=== PATIENT | female | born 1965 | race Native Hawaiian/Other Pacific Islander ===

== ENCOUNTER 2017-05-12 10:17 | Emergency (ER) | payer OTHER ==
[2017-05-12 10:27] VITALS: BP 113/76
--- NOTE | 2017-05-12 10:46 | UC ---
Throat Pain/Nasal Prince HPI - HPI Summary HPI Summary: 52 yo female with a one week hx of nasal congestion/post nasal drip Has left frontal and maxillary pain/pressure worse when bending over left upper teeth sensitive no f/c no n/v/d no photophobia - History of Current Complaint Chief Complaint: UCHeadache Stated Complaint: HEADACHE Time Seen by Provider: 05/12/17 10:37 Hx Obtained From: Patient Hx Last Menstrual Period: 05/06/17 Onset/Duration: Gradual Onset, Still Present Severity: Moderate Pain Intensity: 6 Pain Scale Used: 0-10 Numeric Associated Signs & Symptoms: Positive: Hoarseness, Sinus Discomfort, Nasal Discharge - Epiglottits Risk Factors Epiglottis Risk Factors: Negative - Allergies/Home Medications Allergies/Adverse Reactions: Allergies Allergy/AdvReac Type Severity Reaction Status Date / Time No Known Allergies Allergy Verified 10/05/13 20:42 PMH/Surg Hx/FS Hx/Imm Hx Previously Healthy: Yes Cardiovascular History: Hypertension - currently not taking meds - Surgical History Surgical History: Yes Surgery Procedure, Year, and Place: HERNIA REPAIR, PLASTIC SURGERY RIGHT EAR - Family History Known Family History: Positive: Hypertension - Social History Alcohol Use: Occasionally Substance Use Type: None Smoking Status (MU): Former Smoker Review of Systems Constitutional: Negative Skin: Negative Eyes: Negative ENT: Dental Pain, Nasal Discharge, Sinus Congestion, Sinus Pain/Tenderness Respiratory: Negative Cardiovascular: Negative Gastrointestinal: Negative Genitourinary: Negative Motor: Negative Neurovascular: Negative Musculoskeletal: Negative Neurological: Negative Psychological: Negative Is Patient Immunocompromised?: No All Other Systems Reviewed And Are Negative: Yes Physical Exam Triage Information Reviewed: Yes Appearance: Well-Appearing, No Pain Distress, Well-Nourished Vital Signs: Initial Vital Signs Temp 98 F 05/12/17 10:24 Pulse 87 05/12/17 10:24 Resp 16 05/12/17 10:24 BP 113/76 05/12/17 10:24 Pulse Ox 100 05/12/17 10:24 Vital Signs Reviewed: Yes Eyes: Positive: Conjunctiva Clear ENT: Positive: Nasal congestion, Nasal drainage, TMs normal - left, Other: - left max and frontal sinus tenderness. Negative: Normal ENT inspection, Hearing grossly normal - no ear canal R/deformed pinna right, Tonsillar swelling , Tonsillar exudate, Trismus Dental: Negative: Gross Decay/Caries @, Abscess @ Neck: Positive: Supple, Nontender, No Lymphadenopathy Respiratory: Positive: Lungs clear, Normal breath sounds, No respiratory distress, No accessory muscle use Cardiovascular: Positive: RRR, No Murmur Musculoskeletal: Positive: ROM Intact, No Edema Neurological: Positive: Alert Psychological Exam: Normal Skin Exam: Normal Throat Pain/Nasal Course/Dx - Differential Dx/Diagnosis Provider Diagnoses: acute sinusitis Discharge - Discharge Plan Condition: Stable Disposition: HOME Prescriptions: Amoxicillin PO (*) [Amoxicillin 875 MG (*)] 875 mg PO BID #20 tab Fluticasone NASAL SPRAY 50MCG* [Flonase NASAL SPRAY 50MCG*] 2 spray BOTH NARES DAILY #1 btl Patient Education Materials: Sinusitis (ED) Additional Instructions: warm facial compresses recheck for new or worsening symptoms recheck mid week if not improved saline nasal spray (OTC) 2 sprays each nostril twice daily
== END 2017-05-12 10:55 | disposition home or self-care (01) ==
LOC: UCEAST 10:17
DX: J01.90 Acute sinusitis, unspecified (principal); I10 Essential (primary) hypertension; Z87.891 Personal history of nicotine dependence
CPT/HCPCS: 99212; G0463